=== PATIENT | female | born 1995 | race American Indian/Alaskan Native ===

== ENCOUNTER 2018-08-27 07:09 | Emergency (ER) | payer OTHER ==
[2018-08-27] MEDS ORDERED: CLEOCIN PO ONE (08:09)
--- NOTE | 2018-08-27 08:10 | Emergency Department Report ---
HPI - General Chief Complaint: Extremity Problem,Nontraumatic Time Seen by Provider: 08/27/18 08:04 - HPI HPI: This is a 22-year-old female who presents complaining of right index finger swelling and pain in the past 2 days. Patient states that about 3-4 days ago she cut it while she was trying to open up closed jar is small cut under the nail and didn't think anything of it. Patient states days following that the finger got swollen and Very painful. She denies any other trauma to the hand ED Past Medical Hx - Past Medical History Previous Medical History?: Yes Hx Asthma: Yes - Surgical History Past Surgical History?: No - Social History Smoking Status: Never Smoker Substance Use Type: None - Medications Home Medications: Home Medications Medication Instructions Recorded Confirmed Last Taken Type Ibuprofen [Motrin] 800 mg PO Q8HR #30 tablet 08/27/18 Unknown Rx cephALEXin [Keflex] 500 mg PO Q12HR #14 cap 08/27/18 Unknown Rx ED Review of Systems ROS: Stated complaint: R INDEX FINGER LACERATION Other details as noted in HPI Comment: All other systems reviewed and negative Physical Exam - Physical Exam Physical Exam: GENERAL: Alert and oriented x3, no apparent distress, Normal Gait, atraumatic. HEAD: Head is normocephalic and a-traumatic. EXTREMITIES/MUSCULOSKELETAL: No cyanosis, clubbing, rash, lesions or edema. Index finger nailbed swollen and erythematous Full ROM bilaterally. UE Pulses 2+ bilaterally. LE and UE 5+ strength bilaterally, NEUROLOGIC: The patient is cooperative with no focal neurologic deficits. Cranial nerves II through XII are grossly intact. Normal speech.. SKIN: Warm and dry, No lesions, No ulceration or induration present. ED Medical Decision Making - Medical Decision Making 23-year-old female presents with paronychia of the right index finger I&D performed. Digital block was obtained with 5 mL of lidocaine. Small incision was made underneath the nailbed with is a 11 blade Copious discharge expelled. Patient tolerated procedure well. Wound was cleaned and wrapped a sterilized gauze Vital signs are normal patient is no acute distress Patient sound with antibiotics. Critical care attestation.: If time is entered above; I have spent that time in minutes in the direct care of this critically ill patient, excluding procedure time. ED Disposition Clinical Impression: Paronychia of finger Disposition: TO HOME OR SELFCARE Is pt being admited?: No Does the pt Need Aspirin: No Condition: Stable Instructions: Paronychia (ED) Additional Instructions: Make sure to follow up with the primary care physician as discussed. Take all your medications as you've been prescribed. If you have any worsening symptoms or develop new symptoms please return to ED immediately. Prescriptions: cephALEXin [Keflex] 500 mg PO Q12HR #14 cap Ibuprofen [Motrin] 800 mg PO Q8HR #30 tablet Referrals: [facility] [Outside] - 3-5 Days [facility] [place] [Outside] - 3-5 Days Forms: Work/School Release Form(ED) Time of Disposition: 08:33
[2018-08-27 09:20] VITALS: BP 112/71
== END 2018-08-27 09:19 | disposition home or self-care (01) ==
LOC: ED 07:09
DX: L03.011 Cellulitis of right finger (principal); J45.909 Unspecified asthma, uncomplicated; Z91.013 Allergy to seafood
CPT/HCPCS: 99282

== ENCOUNTER 2019-05-04 23:00 | Emergency (ER) | payer SELFPAY | END 2019-05-04 23:13 | disposition left against medical advice (07) | LOC: ED 23:00 | DX: R50.9 Fever, unspecified (principal); Z53.21 Procedure and treatment not carried out due to patient leaving prior to being seen by health care provider ==

== ENCOUNTER 2019-05-05 19:02 | Emergency (ER) | payer OTHER ==
[2019-05-05] MEDS ORDERED: ACETAMINOPHEN 325 MG TAB PO ONE (19:58)
[2019-05-05] MEDS ORDERED: IBUPROFEN 600 MG TAB PO ONE (19:58)
--- NOTE | 2019-05-05 19:58 | Event Note ---
ED Screening Note ED Screening Note: states she began to flu like symptoms that began yesterday +nausea +fever no vomiting no diarrhea body aches +dry cough +rhinorrhea no sore throat no abd pain PMhx asthma allergy: PCN LNMP: 04/19/19 no known sick contacts took ibuprofen today around 1PM
--- NOTE | 2019-05-05 20:00 | Emergency Department Report ---
- General Chief Complaint: Fever Stated Complaint: FLU SX Time Seen by Provider: 05/05/19 19:52 Source: patient Mode of arrival: Ambulatory Limitations: No Limitations - History of Present Illness Initial Comments: pt is a 24 yo female who states she began to flu like symptoms that began yesterday. she has associated nausea, fever, generalized body aches, dry cough, rhinorrhea. she denies any vomiting, diarrhea, sore throat, abd pain, CP, or SOB. PMhx asthma, uses an albuterol inhaler, has one at home. allergy: PCN LNMP: 04/19/19. no known sick contacts. she states she took ibuprofen today around 1PM. - Related Data Previous Rx's Medication Instructions Recorded Last Taken Type Ibuprofen [Motrin] 800 mg PO Q8HR #30 tablet 08/27/18 Unknown Rx cephALEXin [Keflex] 500 mg PO Q12HR #14 cap 08/27/18 Unknown Rx Oseltamivir [Tamiflu] 75 mg PO BID 5 Days #10 cap 05/05/19 Unknown Rx Allergies Allergy/AdvReac Type Severity Reaction Status Date / Time shellfish derived Allergy Anaphylaxis Verified 08/27/18 07:13 ED Review of Systems ROS: Stated complaint: FLU SX Other details as noted in HPI Comment: All other systems reviewed and negative ED Past Medical Hx - Past Medical History Previous Medical History?: Yes Hx Asthma: Yes - Surgical History Past Surgical History?: No - Social History Smoking Status: Never Smoker Substance Use Type: None - Medications Home Medications: Home Medications Medication Instructions Recorded Confirmed Last Taken Type Ibuprofen [Motrin] 800 mg PO Q8HR #30 tablet 08/27/18 Unknown Rx cephALEXin [Keflex] 500 mg PO Q12HR #14 cap 08/27/18 Unknown Rx Oseltamivir [Tamiflu] 75 mg PO BID 5 Days #10 cap 05/05/19 Unknown Rx ED Physical Exam - General Limitations: No Limitations General appearance: alert, in no apparent distress - Head Head exam: Present: atraumatic, normocephalic - Eye Eye exam: Present: normal appearance - ENT ENT exam: Present: normal orophraynx, mucous membranes moist, TM's normal bilaterally, normal external ear exam - Respiratory Respiratory exam: Present: normal lung sounds bilaterally. Absent: respiratory distress, wheezes, rales, rhonchi, stridor, chest wall tenderness, accessory muscle use, decreased breath sounds, prolonged expiratory - Cardiovascular Cardiovascular Exam: Present: regular rate, normal rhythm, normal heart sounds. Absent: systolic murmur, diastolic murmur, rubs, gallop - Neurological Exam Neurological exam: Present: alert, oriented X3 - Psychiatric Psychiatric exam: Present: normal affect, normal mood - Skin Skin exam: Present: warm, dry, intact ED Course Vital Signs 05/05/19 05/05/19 05/05/19 19:26 19:57 20:04 Temperature 102.5 F H 102.5 F H Pulse Rate 103 H 104 H Respiratory 18 18 18 Rate Blood Pressure 126/82 128/82 O2 Sat by Pulse 98 100 Oximetry 05/05/19 05/05/19 05/05/19 20:05 20:19 21:10 Temperature 102.3 F H Pulse Rate 93 H 92 H Respiratory 18 16 18 Rate Blood Pressure 121/72 O2 Sat by Pulse 98 98 Oximetry 05/05/19 21:15 Temperature 100.8 F H Pulse Rate Respiratory Rate Blood Pressure O2 Sat by Pulse Oximetry ED Medical Decision Making - Medical Decision Making pt is a 24 yo female who states she began to flu like symptoms that began yesterday. she has associated nausea, fever, generalized body aches, dry cough, rhinorrhea. she denies any vomiting, diarrhea, sore throat, abd pain, CP, or SOB. PMhx asthma, uses an albuterol inhaler, has one at home. allergy: PCN LNMP: 04/19/19. no known sick contacts. she states she took ibuprofen today around 1PM. initial vitals with elevated temp and HR which improved upon ibuprofen and tylenol administration. pt has clinical signs and symptoms of influenza and is within the 48-hour range for Tamiflu. advised pt to please take medication as prescribed. increase your fluid intake over the next several days, get plenty of rest. may alternate tylenol then ibuprofen every 4 hours as needed for a fever. may take over the counter cough/cold medication. follow up with a primary care doctor in the next 2-3 days. return to the emergency room for any new or worsening symptoms. - Differential Diagnosis influenza, URI, PNA, viral syndrome, otitis, pharyngitis Critical care attestation.: If time is entered above; I have spent that time in minutes in the direct care of this critically ill patient, excluding procedure time. ED Disposition Clinical Impression: Influenza Disposition: DC-01 TO HOME OR SELFCARE Is pt being admited?: No Does the pt Need Aspirin: No Condition: Stable Instructions: Influenza (ED) Additional Instructions: please take medication as prescribed. increase your fluid intake over the next several days, get plenty of rest. may alternate tylenol then ibuprofen every 4 hours as needed for a fever. may take over the counter cough/cold medication. follow up with a primary care doctor in the next 2-3 days. return to the emergency room for any new or worsening symptoms. Prescriptions: Oseltamivir [Tamiflu] 75 mg PO BID 5 Days #10 cap Referrals: GELY BENNETT MD [Staff Physician] - 2-3 Days [facility] [Outside] - 2-3 Days [facility] [Outside] - 2-3 Days Forms: Work/School Release Form(ED) Time of Disposition: 20:00 Print Language: MOLDOVAN
[2019-05-05] MEDS ORDERED: ACETAMINOPHEN 325 MG TAB ONE (20:01)
[2019-05-05 21:11] VITALS: BP 121/72
== END 2019-05-05 21:16 | disposition home or self-care (01) ==
LOC: ED 19:02
DX: J11.1 Influenza due to unidentified influenza virus with other respiratory manifestations (principal); J45.909 Unspecified asthma, uncomplicated; Z79.899 Other long term (current) drug therapy; Z91.013 Allergy to seafood